=== PATIENT | male | born 1980 | race Caucasian/White ===

== ENCOUNTER 2021-09-26 19:31 | Inpatient (IN) | payer OTHER ==
[2021-09-26] MEDS ORDERED: SODIUM CHLORIDE 1,633 ML IV ONE (20:29)
[2021-09-26] MEDS ORDERED: VANCOMYCIN 1 GM in D5W (PRE-DOCKED) 1,000 MG/250 ML IVPB ONE (20:39)
[2021-09-26] MEDS ORDERED: PIPERACILLIN/TAZOB 4.5 GM 4.5 GM in DEXTROSE 5%-WATER 100 ML IVPB ONE (20:39)
[2021-09-26] MEDS ORDERED: VANCOMYCIN/WATER FOR INJ (PEG) 1,000 MG/200 ML BAG IVPB ONE (21:18)
[2021-09-26 21:47] LABS: VENOUS BASE EXCESS 1.8 mmol/L (-2-2); VENOUS O2 SATURATION 35.5 % (70-80); VENOUS PCO2 61.6 mmHg (38-52); VENOUS PH 7.3 (7.310-7.410)
[2021-09-26 21:58] LABS: BASO % 0.6 % (0-2.0); EOS % 0.8 % (0-4.5); HEMATOCRIT 35.1 % (35.4-49); HEMOGLOBIN 11.8 GM/dL (11.7-16.9); LYMPH % 33.8 % (8-40); MCH 26.3 pg (25.7-33.7); MCHC 33.5 g/dl (32.0-35.9); MEAN CELL VOLUME 78.4 fl (80-96); MEAN PLT VOLUME 8.3 fl (7.5-11.1); MONO % 8.5 % (3.8-10.2); NEUT % 56.3 % (42.8-82.8); PLATELET COUNT 199 10^3/uL (134-434); RBC 4.48 M/mm3 (4.00-5.60); RDW 18.4 % (11.9-15.9); WHITE BLOOD COUNT 5.3 K/mm3 (4.0-10.0)
[2021-09-26] MEDS ORDERED: PIPERACILLIN/TAZOB 4.5 GM 4.5 GM/100 ML BAG IVPB ONE (22:01)
[2021-09-26 22:06] LABS: INR 1.04 (0.83-1.09)
[2021-09-26 22:08] LABS: CHLORIDE 92 mmol/L (98-107); SODIUM 134 mmol/L (136-145)
[2021-09-26 22:09] LABS: ACTIVATED PTT 28.4 SECONDS (25.2-36.5)
[2021-09-26 22:11] LABS: ALBUMIN 3.4 g/dl (3.4-5.0); ANION GAP 12 MMOL/L (8-16); BLOOD UREA NITROGEN 33.2 mg/dL (7-18); CALCIUM 9.1 mg/dL (8.5-10.1); CO2 30 mmol/L (21-32)
[2021-09-26 22:14] LABS: CREATININE 1.9 mg/dL (0.55-1.3); SGOT/AST 36 U/L (15-37); SGPT/ALT 43 U/L (13-61)
[2021-09-26 22:16] LABS: BILIRUBIN,TOTAL 0.6 mg/dL (0.2-1); LACTIC ACID 4.4 mmol/L (0.4-2.0); TOT PROT 8.2 g/dl (6.4-8.2)
[2021-09-26 22:17] LABS: ALK PHOS 154 U/L (45-117); GLUCOSE,RANDOM 497 mg/dL (74-106)
[2021-09-26] MEDS ORDERED: INSULIN REGULAR HUMAN 100 UNITS/ML *VIAL SQ ONE (22:20)
[2021-09-26] MEDS ORDERED: LACTATED RINGERS SOLUTION 1000 ML INFUS.BAG IV ONE (22:26)
[2021-09-26] MEDS ORDERED: INSULIN REGULAR HUMAN 100 UNITS/ML *VIAL ONE (23:14)
[2021-09-26 23:30] LABS: PH,URINE 5.5 (5.0-8.0); URINE APPEARANCE CLEAR; URINE BILIRUBIN NEGATIVE (NEGATIVE); URINE COLOR YELLOW; URINE GLUCOSE (UA) 3+ (NEGATIVE); URINE KETONE 1+ (NEGATIVE); URINE LEUK ESTERASE NEGATIVE (NEGATIVE); URINE NITRITE NEGATIVE (NEGATIVE); URINE PROTEIN NEGATIVE (NEGATIVE); URINE UROBILINOGEN 0.2 mg/dL (0.2-1.0)
[2021-09-27] MEDS ORDERED: chlordiazePOXIDE HCL 25 MG CAPSULE PO PRN (01:11)
[2021-09-27] MEDS ORDERED: chlordiazePOXIDE HCL 25 MG CAPSULE PO ONE (01:11)
[2021-09-27 01:12] LABS: CHLORIDE 98 mmol/L (98-107); SODIUM 135 mmol/L (136-145)
[2021-09-27 01:14] LABS: CALCIUM 8.4 mg/dL (8.5-10.1)
[2021-09-27 01:15] LABS: ANION GAP 7 MMOL/L (8-16); CO2 30 mmol/L (21-32)
[2021-09-27] MEDS ORDERED: THIAMINE HCL 200 MG/2 ML VIAL IVPB ONE (01:15)
[2021-09-27 01:18] LABS: CREATININE 1.7 mg/dL (0.55-1.3)
[2021-09-27 01:27] LABS: GLUCOSE,RANDOM 409 mg/dL (74-106)
[2021-09-27] MEDS ORDERED: chlordiazePOXIDE HCL 25 MG CAPSULE ONE (02:19)
[2021-09-27] MEDS ORDERED: THIAMINE HCL 200 MG/2 ML VIAL ONE (02:19)
[2021-09-27] MEDS ORDERED: diazePAM 5 MG TABLET PO PRN (02:25)
[2021-09-27] MEDS ORDERED: diazePAM 5 MG TABLET PO ONE (02:25)
[2021-09-27] MEDS ORDERED: chlordiazePOXIDE HCL 25 MG CAPSULE PO SCH (05:00)
[2021-09-27] MEDS ORDERED: INSULIN SLIDING SCALE (NOVOLOG) 1 VIAL SQ SCH (07:00)
[2021-09-27 07:24] LABS: HEMATOCRIT 28.3 % (35.4-49); HEMOGLOBIN 9.6 GM/dL (11.7-16.9); MCH 26.3 pg (25.7-33.7); MCHC 33.8 g/dl (32.0-35.9); MEAN CELL VOLUME 77.8 fl (80-96); MEAN PLT VOLUME 8.4 fl (7.5-11.1); PLATELET COUNT 164 10^3/uL (134-434); RBC 3.64 M/mm3 (4.00-5.60); RDW 17.9 % (11.9-15.9); WHITE BLOOD COUNT 5.9 K/mm3 (4.0-10.0)
[2021-09-27] MEDS ORDERED: PIPERACILLIN/TAZOB 3.375 GM 3.375 GM in DEXTROSE 5%-WATER - 50 ML IVPB ONE (07:30)
[2021-09-27] MEDS: LACTATED RINGERS SOLUTION 1,000 ML/1,000 ML INFUS.BAG IV SCH ×2 (07:46→18:34)
[2021-09-27] MEDS ORDERED: methaDONE HCL 10 MG TABLET PO ONE (07:47)
[2021-09-27 07:48] LABS: BLOOD UREA NITROGEN 28.3 mg/dL (7-18); CALCIUM 8.1 mg/dL (8.5-10.1)
[2021-09-27 07:49] LABS: MAGNESIUM 2.1 mg/dL (1.8-2.4)
[2021-09-27 07:51] LABS: CREATININE 1.3 mg/dL (0.55-1.3); PHOSPHOROUS 2.2 mg/dL (2.5-4.9)
[2021-09-27 07:53] LABS: BILIRUBIN,TOTAL 0.6 mg/dL (0.2-1); TOT PROT 6.5 g/dl (6.4-8.2)
[2021-09-27 08:02] LABS: ALBUMIN 2.6 g/dl (3.4-5.0)
[2021-09-27] MEDS: HEPARIN NA (PORCINE) 5,000 UNITS/ML 1ML VIAL SQ SCH ×4 (08:09→22:21)
[2021-09-27] MEDS: diazePAM 5 MG TABLET PO SCH ×4 (08:09→22:10)
[2021-09-27] MEDS ORDERED: DEXTROSE 5%-WATER - 50 ML IVPB ONE ×2 (08:16→16:56)
[2021-09-27] MEDS ORDERED: PIPERACILLIN/TAZOBACTAM 3.375 GM VIAL IVPB ONE ×2 (08:16→16:55)
[2021-09-27] MEDS ORDERED: VANCOMYCIN 1 GM in D5W (PRE-DOCKED) 1,000 MG/250 ML IVPB SCH (10:00)
[2021-09-27] MEDS ORDERED: PIPERACILLIN/TAZOB 3.375 GM 3.375 GM in DEXTROSE 5%-WATER - 50 ML IVPB SCH (10:00)
[2021-09-27] MEDS ORDERED: methaDONE HCL 40 MG DISPERSABLE TABLET ONE (10:00)
[2021-09-27] MEDS ORDERED: methaDONE HCL 10 MG TABLET ONE (10:01)
[2021-09-27] MEDS: FOLIC ACID 1 MG TABLET (FP) PO SCH (10:05)
[2021-09-27] MEDS: THIAMINE HCL 100 MG TABLET (FP) PO SCH (10:05)
[2021-09-27] MEDS: LISINOPRIL 5 MG TABLET PO SCH (10:08)
[2021-09-27] MEDS ORDERED: NAPH,MB-DB/K PH,MBDB POWDER PACKET PO ONE (11:00)
[2021-09-27] MEDS: INSULIN (LEVEMIR) 100 UNITS/ML UNITS SQ SCH ×2 (11:19→22:08)
[2021-09-27] MEDS: INSULIN SLIDING SCALE (NOVOLOG) 1 VIAL SQ SCH ×3 (11:22→22:07)
[2021-09-27] MEDS: NICOTINE 7 MG/24 HOURS TOPICAL PATCH TD SCH (11:52)
[2021-09-27 13:17] VITALS: BMI 18.1
[2021-09-27] MEDS: PREGABALIN 100 MG CAPSULE PO SCH ×2 (13:35→22:10)
[2021-09-27] MEDS: DOXYCYCLINE MONOHYDRATE 25 MG/5 ML SUSPENSION PO SCH (17:36)
[2021-09-27] MEDS: PIPERACILLIN/TAZOB 3.375 GM 3.375 GM in DEXTROSE 5%-WATER - 50 ML IVPB SCH (17:37)
[2021-09-27] MEDS ORDERED: VANCOMYCIN/WATER FOR INJ (PEG) 1,000 MG/200 ML BAG IVPB SCH (20:00)
[2021-09-28] MEDS ORDERED: PIPERACILLIN/TAZOBACTAM 3.375 GM VIAL IVPB ONE ×3 (01:05→17:44)
[2021-09-28] MEDS ORDERED: DEXTROSE 5%-WATER - 50 ML IVPB ONE ×3 (01:05→17:45)
[2021-09-28] MEDS: PIPERACILLIN/TAZOB 3.375 GM 3.375 GM in DEXTROSE 5%-WATER - 50 ML IVPB SCH ×3 (01:16→17:51)
[2021-09-28] MEDS: LACTATED RINGERS SOLUTION 1,000 ML/1,000 ML INFUS.BAG IV SCH ×2 (04:31→12:08)
[2021-09-28] MEDS ORDERED: chlordiazePOXIDE HCL 25 MG CAPSULE PO SCH (05:00)
[2021-09-28] MEDS ORDERED: methaDONE HCL 10 MG TABLET PO SCH (06:00)
[2021-09-28] MEDS: INSULIN SLIDING SCALE (NOVOLOG) 1 VIAL SQ SCH ×4 (06:03→21:32)
[2021-09-28] MEDS: PREGABALIN 100 MG CAPSULE PO SCH ×3 (06:03→21:29)
[2021-09-28] MEDS: diazePAM 5 MG TABLET PO SCH ×3 (06:03→21:30)
[2021-09-28] MEDS: HEPARIN NA (PORCINE) 5,000 UNITS/ML 1ML VIAL SQ SCH ×3 (06:09→21:31)
[2021-09-28 06:22] LABS: URINE APPEARANCE CLEAR; URINE BILIRUBIN NEGATIVE (NEGATIVE); URINE COLOR YELLOW; URINE GLUCOSE (UA) 3+ (NEGATIVE); URINE KETONE NEGATIVE (NEGATIVE); URINE LEUK ESTERASE NEGATIVE (NEGATIVE); URINE NITRITE NEGATIVE (NEGATIVE); URINE PROTEIN NEGATIVE (NEGATIVE)
[2021-09-28] MEDS ORDERED: methaDONE HCL 40 MG DISPERSABLE TABLET ONE (10:16)
[2021-09-28] MEDS ORDERED: methaDONE HCL 10 MG TABLET ONE (10:16)
[2021-09-28] MEDS: DOXYCYCLINE MONOHYDRATE 25 MG/5 ML SUSPENSION PO SCH ×2 (10:19→17:50)
[2021-09-28] MEDS: MULTIVITAMINS (DAILY MVI) TABLET (FP) PO SCH (10:22)
[2021-09-28] MEDS: INSULIN (LEVEMIR) 100 UNITS/ML UNITS SQ SCH ×2 (10:22→21:32)
[2021-09-28] MEDS: FOLIC ACID 1 MG TABLET (FP) PO SCH (10:22)
[2021-09-28] MEDS: AMINO ACIDS/PROTEIN HYDROLYS 30 ML LIQUID.PKT PO SCH (10:22)
[2021-09-28] MEDS: THIAMINE HCL 100 MG TABLET (FP) PO SCH (10:22)
[2021-09-28] MEDS: LISINOPRIL 5 MG TABLET PO SCH (10:22)
[2021-09-28] MEDS: ASCORBIC ACID 250 MG TABLET (FP) PO SCH (10:22)
[2021-09-28] MEDS: NICOTINE 7 MG/24 HOURS TOPICAL PATCH TD SCH (15:25)
[2021-09-28 18:05] LABS: BASO % 0.4 % (0-2.0); EOS % 2.7 % (0-4.5); HEMATOCRIT 30.9 % (35.4-49); HEMOGLOBIN 10.2 GM/dL (11.7-16.9); LYMPH % 37.7 % (8-40); MCH 26.2 pg (25.7-33.7); MCHC 33.1 g/dl (32.0-35.9); MEAN CELL VOLUME 79.2 fl (80-96); MEAN PLT VOLUME 8.4 fl (7.5-11.1); MONO % 6.3 % (3.8-10.2); NEUT % 52.9 % (42.8-82.8); PLATELET COUNT 172 10^3/uL (134-434); RDW 18.5 % (11.9-15.9); WHITE BLOOD COUNT 6.5 K/mm3 (4.0-10.0)
[2021-09-28 18:14] LABS: CALCIUM 8.7 mg/dL (8.5-10.1)
[2021-09-28 18:15] LABS: ALBUMIN 2.5 g/dl (3.4-5.0); BLOOD UREA NITROGEN 21.8 mg/dL (7-18); MAGNESIUM 1.8 mg/dL (1.8-2.4)
[2021-09-28 18:17] LABS: PHOSPHOROUS 2.4 mg/dL (2.5-4.9)
[2021-09-28 18:19] LABS: BILIRUBIN,TOTAL 0.4 mg/dL (0.2-1); TOT PROT 6.6 g/dl (6.4-8.2)
[2021-09-29] MEDS ORDERED: chlordiazePOXIDE HCL 10 MG CAPSULE PO PRN
[2021-09-29] MEDS ORDERED: PIPERACILLIN/TAZOBACTAM 3.375 GM VIAL IVPB ONE ×3 (01:06→18:34)
[2021-09-29] MEDS ORDERED: DEXTROSE 5%-WATER - 50 ML IVPB ONE ×3 (01:06→18:34)
[2021-09-29] MEDS: PIPERACILLIN/TAZOB 3.375 GM 3.375 GM in DEXTROSE 5%-WATER - 50 ML IVPB SCH ×3 (01:19→19:04)
[2021-09-29] MEDS: LACTATED RINGERS SOLUTION 1,000 ML/1,000 ML INFUS.BAG IV SCH ×3 (02:14→13:53)
[2021-09-29] MEDS ORDERED: chlordiazePOXIDE HCL 10 MG CAPSULE PO SCH (05:00)
[2021-09-29] MEDS ORDERED: methaDONE HCL 10 MG TABLET ONE (06:05)
[2021-09-29] MEDS ORDERED: methaDONE HCL 40 MG DISPERSABLE TABLET ONE (06:05)
[2021-09-29] MEDS: PREGABALIN 100 MG CAPSULE PO SCH ×3 (06:07→21:16)
[2021-09-29] MEDS: HEPARIN NA (PORCINE) 5,000 UNITS/ML 1ML VIAL SQ SCH ×4 (06:08→21:11)
[2021-09-29] MEDS: diazePAM 5 MG TABLET PO SCH ×2 (06:08→19:02)
[2021-09-29] MEDS: INSULIN SLIDING SCALE (NOVOLOG) 1 VIAL SQ SCH ×5 (06:14→21:23)
[2021-09-29 10:20] LABS: BASO % 0.5 % (0-2.0); EOS % 1.9 % (0-4.5); HEMATOCRIT 30.2 % (35.4-49); LYMPH % 36.8 % (8-40); MCH 26.5 pg (25.7-33.7); MCHC 33.1 g/dl (32.0-35.9); MEAN CELL VOLUME 80.2 fl (80-96); MEAN PLT VOLUME 8.6 fl (7.5-11.1); MONO % 6.2 % (3.8-10.2); NEUT % 54.6 % (42.8-82.8); PLATELET COUNT 170 10^3/uL (134-434); RBC 3.77 M/mm3 (4.00-5.60); RDW 18.2 % (11.9-15.9); WHITE BLOOD COUNT 7.4 K/mm3 (4.0-10.0)
[2021-09-29] MEDS: MULTIVITAMINS (DAILY MVI) TABLET (FP) PO SCH (10:53)
[2021-09-29] MEDS: LISINOPRIL 5 MG TABLET PO SCH (10:53)
[2021-09-29] MEDS: THIAMINE HCL 100 MG TABLET (FP) PO SCH (10:54)
[2021-09-29] MEDS: NICOTINE 7 MG/24 HOURS TOPICAL PATCH TD SCH (10:54)
[2021-09-29] MEDS: FOLIC ACID 1 MG TABLET (FP) PO SCH (10:54)
[2021-09-29] MEDS: AMINO ACIDS/PROTEIN HYDROLYS 30 ML LIQUID.PKT PO SCH (10:54)
[2021-09-29] MEDS: DOXYCYCLINE MONOHYDRATE 25 MG/5 ML SUSPENSION PO SCH ×2 (10:56→19:09)
[2021-09-29] MEDS: ASCORBIC ACID 250 MG TABLET (FP) PO SCH (10:56)
[2021-09-29 10:58] LABS: BLOOD UREA NITROGEN 24.8 mg/dL (7-18)
[2021-09-29] MEDS: INSULIN (LEVEMIR) 100 UNITS/ML UNITS SQ SCH ×2 (10:59→21:16)
[2021-09-29 11:00] LABS: ALBUMIN 2.5 g/dl (3.4-5.0); CALCIUM 8.8 mg/dL (8.5-10.1)
[2021-09-29 11:01] LABS: MAGNESIUM 1.6 mg/dL (1.8-2.4)
[2021-09-29 11:02] LABS: CREATININE 1.1 mg/dL (0.55-1.3)
[2021-09-29 11:03] LABS: TOT PROT 6.6 g/dl (6.4-8.2)
[2021-09-29 11:04] LABS: BILIRUBIN,TOTAL 0.4 mg/dL (0.2-1)
[2021-09-29 11:05] LABS: PHOSPHOROUS 3.1 mg/dL (2.5-4.9)
[2021-09-29] MEDS ORDERED: ONDANSETRON 4 MG/2 ML VIAL IVPUSH PRN (13:28)
[2021-09-29] MEDS ORDERED: LORazepam 2 MG/ML SDV VIAL IVPUSH PRN (13:42)
[2021-09-29] MEDS: ACETAMINOPHEN 1000 MG/100 ML BAG IVPB PRN (13:54)
[2021-09-29] MEDS: COLLAGENASE CLOSTRIDIUM HIST. 30 GRAMS TUBE TP SCH ×2 (19:03→19:37)
[2021-09-30] MEDS ORDERED: DEXTROSE 5%-WATER - 50 ML IVPB ONE ×3 (01:11→17:37)
[2021-09-30] MEDS ORDERED: PIPERACILLIN/TAZOBACTAM 3.375 GM VIAL IVPB ONE ×3 (01:11→17:37)
[2021-09-30] MEDS: PIPERACILLIN/TAZOB 3.375 GM 3.375 GM in DEXTROSE 5%-WATER - 50 ML IVPB SCH ×3 (01:41→17:44)
[2021-09-30] MEDS ORDERED: chlordiazePOXIDE HCL 10 MG CAPSULE PO SCH (05:00)
[2021-09-30] MEDS: HEPARIN NA (PORCINE) 5,000 UNITS/ML 1ML VIAL SQ SCH ×3 (05:14→21:10)
[2021-09-30] MEDS ORDERED: methaDONE HCL 40 MG DISPERSABLE TABLET ONE (05:35)
[2021-09-30] MEDS ORDERED: methaDONE HCL 10 MG TABLET ONE (05:35)
[2021-09-30] MEDS ORDERED: diazePAM 5 MG TABLET PO ONE (06:00)
[2021-09-30] MEDS: PREGABALIN 100 MG CAPSULE PO SCH ×3 (06:10→21:11)
[2021-09-30] MEDS: LACTATED RINGERS SOLUTION 1,000 ML/1,000 ML INFUS.BAG IV SCH (06:12)
[2021-09-30] MEDS: INSULIN SLIDING SCALE (NOVOLOG) 1 VIAL SQ SCH ×4 (06:22→21:16)
[2021-09-30] MEDS: INSULIN (LEVEMIR) 100 UNITS/ML UNITS SQ SCH ×2 (06:22→21:11)
[2021-09-30] MEDS: AMINO ACIDS/PROTEIN HYDROLYS 30 ML LIQUID.PKT PO SCH (08:16)
[2021-09-30 09:19] LABS: BASO % 0.5 % (0-2.0); HEMATOCRIT 30.7 % (35.4-49); HEMOGLOBIN 10.5 GM/dL (11.7-16.9); LYMPH % 38.5 % (8-40); MCH 26.9 pg (25.7-33.7); MEAN PLT VOLUME 7.9 fl (7.5-11.1); MONO % 5.7 % (3.8-10.2); NEUT % 52.3 % (42.8-82.8); PLATELET COUNT 166 10^3/uL (134-434); RBC 3.89 M/mm3 (4.00-5.60); RDW 18.1 % (11.9-15.9); WHITE BLOOD COUNT 5.3 K/mm3 (4.0-10.0)
[2021-09-30 09:45] LABS: ALBUMIN 2.4 g/dl (3.4-5.0); CALCIUM 8.8 mg/dL (8.5-10.1)
[2021-09-30 09:46] LABS: BLOOD UREA NITROGEN 29.6 mg/dL (7-18)
[2021-09-30 09:48] LABS: CREATININE 1.2 mg/dL (0.55-1.3); PHOSPHOROUS 3.4 mg/dL (2.5-4.9)
[2021-09-30 09:49] LABS: BILIRUBIN,TOTAL 0.4 mg/dL (0.2-1)
[2021-09-30 09:50] LABS: MAGNESIUM 1.8 mg/dL (1.8-2.4); TOT PROT 6.6 g/dl (6.4-8.2)
[2021-09-30] MEDS: THIAMINE HCL 100 MG TABLET (FP) PO SCH (11:00)
[2021-09-30] MEDS: MULTIVITAMINS (DAILY MVI) TABLET (FP) PO SCH (11:00)
[2021-09-30] MEDS: FOLIC ACID 1 MG TABLET (FP) PO SCH (11:00)
[2021-09-30] MEDS: ASCORBIC ACID 250 MG TABLET (FP) PO SCH (11:00)
[2021-09-30] MEDS: NICOTINE 7 MG/24 HOURS TOPICAL PATCH TD SCH (11:01)
[2021-09-30] MEDS: DOXYCYCLINE MONOHYDRATE 25 MG/5 ML SUSPENSION PO SCH ×2 (11:02→17:43)
[2021-09-30] MEDS: ACETAMINOPHEN 1000 MG/100 ML BAG IVPB PRN (13:41)
[2021-09-30] MEDS: COLLAGENASE CLOSTRIDIUM HIST. 30 GRAMS TUBE TP SCH (13:42)
[2021-09-30] MEDS: LISINOPRIL 5 MG TABLET PO SCH (13:49)
[2021-09-30] MEDS ORDERED: HYDROmorphone HCl 2 MG/ML VIAL IVPB ONE (14:00)
[2021-09-30] MEDS: GABAPENTIN 300 MG CAPSULE PO SCH ×2 (14:52→15:07)
[2021-09-30] MEDS: ACETAMINOPHEN 325 MG TABLET (FP) PO SCH ×2 (14:52→21:15)
[2021-09-30] MEDS: LORazepam 1 MG TABLET PO PRN (17:14)
[2021-10-01] MEDS ORDERED: DEXTROSE 5%-WATER - 50 ML IVPB ONE ×3 (01:01→17:37)
[2021-10-01] MEDS ORDERED: PIPERACILLIN/TAZOBACTAM 3.375 GM VIAL IVPB ONE ×3 (01:01→17:37)
[2021-10-01] MEDS: PIPERACILLIN/TAZOB 3.375 GM 3.375 GM in DEXTROSE 5%-WATER - 50 ML IVPB SCH ×3 (01:09→17:45)
[2021-10-01] MEDS: ACETAMINOPHEN 325 MG TABLET (FP) PO SCH ×3 (04:21→15:53)
[2021-10-01] MEDS ORDERED: chlordiazePOXIDE HCL 10 MG CAPSULE PO ONE (05:00)
[2021-10-01] MEDS ORDERED: methaDONE HCL 10 MG TABLET ONE (05:16)
[2021-10-01] MEDS ORDERED: methaDONE HCL 40 MG DISPERSABLE TABLET ONE (05:16)
[2021-10-01] MEDS: PREGABALIN 100 MG CAPSULE PO SCH ×2 (05:24→15:53)
[2021-10-01] MEDS: LORazepam 1 MG TABLET PO PRN ×2 (05:24→17:43)
[2021-10-01] MEDS: HEPARIN NA (PORCINE) 5,000 UNITS/ML 1ML VIAL SQ SCH ×2 (05:27→15:56)
[2021-10-01] MEDS: INSULIN (LEVEMIR) 100 UNITS/ML UNITS SQ SCH (06:35)
[2021-10-01] MEDS: INSULIN SLIDING SCALE (NOVOLOG) 1 VIAL SQ SCH ×3 (06:36→17:47)
[2021-10-01] MEDS: AMINO ACIDS/PROTEIN HYDROLYS 30 ML LIQUID.PKT PO SCH (08:36)
[2021-10-01] MEDS: ASCORBIC ACID 250 MG TABLET (FP) PO SCH (11:24)
[2021-10-01] MEDS: THIAMINE HCL 100 MG TABLET (FP) PO SCH (11:24)
[2021-10-01] MEDS: NICOTINE 7 MG/24 HOURS TOPICAL PATCH TD SCH (11:30)
[2021-10-01] MEDS: LISINOPRIL 5 MG TABLET PO SCH (11:31)
[2021-10-01] MEDS: FOLIC ACID 1 MG TABLET (FP) PO SCH (11:31)
[2021-10-01] MEDS: DOXYCYCLINE MONOHYDRATE 25 MG/5 ML SUSPENSION PO SCH ×2 (11:32→17:44)
[2021-10-01] MEDS: COLLAGENASE CLOSTRIDIUM HIST. 30 GRAMS TUBE TP SCH (11:32)
[2021-10-01] MEDS: MULTIVITAMINS (DAILY MVI) TABLET (FP) PO SCH (11:32)
[2021-10-01 12:28] LABS: BASO % 0.7 % (0-2.0); EOS % 3.1 % (0-4.5); HEMATOCRIT 30.1 % (35.4-49); LYMPH % 44.6 % (8-40); MCH 26.4 pg (25.7-33.7); MCHC 33.2 g/dl (32.0-35.9); MEAN CELL VOLUME 79.5 fl (80-96); MEAN PLT VOLUME 8.4 fl (7.5-11.1); MONO % 7.6 % (3.8-10.2); PLATELET COUNT 203 10^3/uL (134-434); RBC 3.78 M/mm3 (4.00-5.60); RDW 18.7 % (11.9-15.9); WHITE BLOOD COUNT 5.3 K/mm3 (4.0-10.0)
[2021-10-01 13:33] LABS: ALBUMIN 2.5 g/dl (3.4-5.0); BILIRUBIN,TOTAL 0.3 mg/dL (0.2-1); BLOOD UREA NITROGEN 26.3 mg/dL (7-18); CALCIUM 8.9 mg/dL (8.5-10.1); MAGNESIUM 1.8 mg/dL (1.8-2.4); TOT PROT 6.7 g/dl (6.4-8.2)
[2021-10-02] MEDS: INSULIN (LEVEMIR) 100 UNITS/ML UNITS SQ SCH ×3 (00:09→21:45)
[2021-10-02] MEDS: INSULIN SLIDING SCALE (NOVOLOG) 1 VIAL SQ SCH ×5 (00:09→21:48)
[2021-10-02] MEDS: HEPARIN NA (PORCINE) 5,000 UNITS/ML 1ML VIAL SQ SCH ×4 (00:09→21:43)
[2021-10-02] MEDS: ACETAMINOPHEN 325 MG TABLET (FP) PO SCH ×5 (00:10→21:39)
[2021-10-02] MEDS: PREGABALIN 100 MG CAPSULE PO SCH ×4 (00:11→21:48)
[2021-10-02] MEDS ORDERED: PIPERACILLIN/TAZOBACTAM 3.375 GM VIAL IVPB ONE ×3 (01:12→08:53)
[2021-10-02] MEDS ORDERED: DEXTROSE 5%-WATER - 50 ML IVPB ONE ×3 (01:13→08:53)
[2021-10-02] MEDS: PIPERACILLIN/TAZOB 3.375 GM 3.375 GM in DEXTROSE 5%-WATER - 50 ML IVPB SCH ×3 (01:27→17:51)
[2021-10-02] MEDS: LORazepam 1 MG TABLET PO PRN ×3 (02:25→20:05)
[2021-10-02] MEDS ORDERED: methaDONE HCL 40 MG DISPERSABLE TABLET ONE (06:53)
[2021-10-02] MEDS ORDERED: methaDONE HCL 10 MG TABLET ONE (06:53)
[2021-10-02] MEDS: THIAMINE HCL 100 MG TABLET (FP) PO SCH (09:20)
[2021-10-02] MEDS: MULTIVITAMINS (DAILY MVI) TABLET (FP) PO SCH (09:21)
[2021-10-02] MEDS: NICOTINE 7 MG/24 HOURS TOPICAL PATCH TD SCH (09:22)
[2021-10-02] MEDS: FOLIC ACID 1 MG TABLET (FP) PO SCH (09:22)
[2021-10-02] MEDS: AMINO ACIDS/PROTEIN HYDROLYS 30 ML LIQUID.PKT PO SCH (09:23)
[2021-10-02] MEDS: ASCORBIC ACID 250 MG TABLET (FP) PO SCH (09:23)
[2021-10-02 09:24] LABS: BASO % 0.8 % (0-2.0); EOS % 2.9 % (0-4.5); HEMATOCRIT 28.4 % (35.4-49); HEMOGLOBIN 9.5 GM/dL (11.7-16.9); LYMPH % 41.8 % (8-40); MCH 26.4 pg (25.7-33.7); MCHC 33.2 g/dl (32.0-35.9); MEAN CELL VOLUME 79.3 fl (80-96); MEAN PLT VOLUME 8.3 fl (7.5-11.1); MONO % 7.3 % (3.8-10.2); NEUT % 47.2 % (42.8-82.8); PLATELET COUNT 192 10^3/uL (134-434); RBC 3.59 M/mm3 (4.00-5.60); RDW 18.4 % (11.9-15.9)
[2021-10-02] MEDS: LISINOPRIL 5 MG TABLET PO SCH (09:33)
[2021-10-02 09:49] LABS: CREATININE 1.2 mg/dL (0.55-1.3)
[2021-10-02 09:50] LABS: ALBUMIN 2.4 g/dl (3.4-5.0); BILIRUBIN,TOTAL 0.3 mg/dL (0.2-1); BLOOD UREA NITROGEN 30.7 mg/dL (7-18); CALCIUM 8.8 mg/dL (8.5-10.1); MAGNESIUM 1.8 mg/dL (1.8-2.4); TOT PROT 6.3 g/dl (6.4-8.2)
[2021-10-02] MEDS: COLLAGENASE CLOSTRIDIUM HIST. 30 GRAMS TUBE TP SCH (09:54)
[2021-10-02] MEDS: DOXYCYCLINE MONOHYDRATE 25 MG/5 ML SUSPENSION PO SCH ×2 (09:54→20:05)
[2021-10-02] MEDS: cloNIDine HCL 0.1 MG TABLET PO SCH ×2 (15:03→21:40)
[2021-10-03] MEDS: PIPERACILLIN/TAZOB 3.375 GM 3.375 GM in DEXTROSE 5%-WATER - 50 ML IVPB SCH ×2 (02:24→12:14)
[2021-10-03] MEDS: ACETAMINOPHEN 325 MG TABLET (FP) PO SCH ×4 (02:24→21:53)
[2021-10-03] MEDS: cloNIDine HCL 0.1 MG TABLET PO SCH ×3 (06:02→22:05)
[2021-10-03] MEDS: HEPARIN NA (PORCINE) 5,000 UNITS/ML 1ML VIAL SQ SCH ×4 (06:02→21:54)
[2021-10-03] MEDS: PREGABALIN 100 MG CAPSULE PO SCH ×3 (06:02→22:07)
[2021-10-03] MEDS: INSULIN (LEVEMIR) 100 UNITS/ML UNITS SQ SCH ×2 (06:03→22:05)
[2021-10-03] MEDS: INSULIN SLIDING SCALE (NOVOLOG) 1 VIAL SQ SCH ×4 (06:03→22:04)
[2021-10-03] MEDS: LORazepam 1 MG TABLET PO PRN ×2 (06:17→22:11)
[2021-10-03] MEDS: AMINO ACIDS/PROTEIN HYDROLYS 30 ML LIQUID.PKT PO SCH (08:26)
[2021-10-03 09:27] LABS: BASO % 0.9 % (0-2.0); HEMOGLOBIN 9.2 GM/dL (11.7-16.9); MCH 26.2 pg (25.7-33.7); MCHC 32.9 g/dl (32.0-35.9); MEAN CELL VOLUME 79.7 fl (80-96); MEAN PLT VOLUME 8.7 fl (7.5-11.1); MONO % 7.3 % (3.8-10.2); NEUT % 45.8 % (42.8-82.8); PLATELET COUNT 170 10^3/uL (134-434); RBC 3.52 M/mm3 (4.00-5.60); RDW 18.3 % (11.9-15.9); WHITE BLOOD COUNT 4.6 K/mm3 (4.0-10.0)
[2021-10-03 09:55] LABS: BLOOD UREA NITROGEN 28.6 mg/dL (7-18)
[2021-10-03 09:58] LABS: ALBUMIN 2.6 g/dl (3.4-5.0); CALCIUM 9.1 mg/dL (8.5-10.1); MAGNESIUM 2.1 mg/dL (1.8-2.4)
[2021-10-03 09:59] LABS: TOT PROT 6.6 g/dl (6.4-8.2)
[2021-10-03 10:01] LABS: CREATININE 1.2 mg/dL (0.55-1.3)
[2021-10-03 10:02] LABS: BILIRUBIN,TOTAL 0.2 mg/dL (0.2-1)
[2021-10-03] MEDS: LISINOPRIL 5 MG TABLET PO SCH (10:42)
[2021-10-03] MEDS: MULTIVITAMINS (DAILY MVI) TABLET (FP) PO SCH (10:43)
[2021-10-03] MEDS: FOLIC ACID 1 MG TABLET (FP) PO SCH (10:43)
[2021-10-03] MEDS: DOXYCYCLINE MONOHYDRATE 25 MG/5 ML SUSPENSION PO SCH (10:44)
[2021-10-03] MEDS: NICOTINE 7 MG/24 HOURS TOPICAL PATCH TD SCH (10:44)
[2021-10-03] MEDS: THIAMINE HCL 100 MG TABLET (FP) PO SCH (10:44)
[2021-10-03] MEDS: ASCORBIC ACID 250 MG TABLET (FP) PO SCH (10:44)
[2021-10-03] MEDS: COLLAGENASE CLOSTRIDIUM HIST. 30 GRAMS TUBE TP SCH ×2 (10:53→16:19)
[2021-10-03] MEDS: CEFTRIAXONE 2 GM in DEXTROSE 5%-WATER 100 ML IVPB SCH (12:05)
[2021-10-04] MEDS: ACETAMINOPHEN 325 MG TABLET (FP) PO SCH ×4 (01:42→21:02)
[2021-10-04] MEDS: cloNIDine HCL 0.1 MG TABLET PO SCH ×3 (06:10→22:53)
[2021-10-04] MEDS: HEPARIN NA (PORCINE) 5,000 UNITS/ML 1ML VIAL SQ SCH ×3 (06:11→22:14)
[2021-10-04] MEDS: PREGABALIN 100 MG CAPSULE PO SCH ×3 (06:11→22:12)
[2021-10-04] MEDS: LORazepam 1 MG TABLET PO PRN ×3 (06:21→22:13)
[2021-10-04] MEDS: INSULIN (LEVEMIR) 100 UNITS/ML UNITS SQ SCH ×2 (06:58→22:14)
[2021-10-04] MEDS: INSULIN SLIDING SCALE (NOVOLOG) 1 VIAL SQ SCH ×4 (06:58→22:16)
[2021-10-04] MEDS: AMINO ACIDS/PROTEIN HYDROLYS 30 ML LIQUID.PKT PO SCH (07:51)
[2021-10-04] MEDS: NICOTINE 7 MG/24 HOURS TOPICAL PATCH TD SCH (09:45)
[2021-10-04] MEDS: THIAMINE HCL 100 MG TABLET (FP) PO SCH (09:47)
[2021-10-04] MEDS: MULTIVITAMINS (DAILY MVI) TABLET (FP) PO SCH (09:47)
[2021-10-04] MEDS: ASCORBIC ACID 250 MG TABLET (FP) PO SCH (09:48)
[2021-10-04] MEDS: FOLIC ACID 1 MG TABLET (FP) PO SCH (09:48)
[2021-10-04] MEDS: LISINOPRIL 5 MG TABLET PO SCH (09:50)
[2021-10-04 10:18] LABS: BASO % 0.9 % (0-2.0); EOS % 1.3 % (0-4.5); HEMATOCRIT 27.3 % (35.4-49); HEMOGLOBIN 8.9 GM/dL (11.7-16.9); LYMPH % 39.7 % (8-40); MCH 26.2 pg (25.7-33.7); MCHC 32.5 g/dl (32.0-35.9); MEAN CELL VOLUME 80.6 fl (80-96); MEAN PLT VOLUME 9.2 fl (7.5-11.1); NEUT % 48.1 % (42.8-82.8); PLATELET COUNT 161 10^3/uL (134-434); RBC 3.38 M/mm3 (4.00-5.60); RDW 18.7 % (11.9-15.9); WHITE BLOOD COUNT 4.4 K/mm3 (4.0-10.0)
[2021-10-04 10:41] LABS: CALCIUM 8.6 mg/dL (8.5-10.1)
[2021-10-04 10:42] LABS: ALBUMIN 2.6 g/dl (3.4-5.0); BLOOD UREA NITROGEN 27.6 mg/dL (7-18); MAGNESIUM 2.1 mg/dL (1.8-2.4)
[2021-10-04 10:45] LABS: CREATININE 1.1 mg/dL (0.55-1.3)
[2021-10-04 10:47] LABS: BILIRUBIN,TOTAL 0.4 mg/dL (0.2-1); TOT PROT 6.8 g/dl (6.4-8.2)
[2021-10-04] MEDS: COLLAGENASE CLOSTRIDIUM HIST. 30 GRAMS TUBE TP SCH (11:12)
[2021-10-04] MEDS: CEFTRIAXONE 2 GM in DEXTROSE 5%-WATER 100 ML IVPB SCH (11:13)
[2021-10-04] MEDS ORDERED: INSULIN (NOVOLOG) ASPART 100 UNITS/ML 10ML VIAL ONE (23:44)
[2021-10-05] MEDS: ACETAMINOPHEN 325 MG TABLET (FP) PO SCH ×4 (02:13→20:16)
[2021-10-05 04:10] VITALS: RESP 18
[2021-10-05] MEDS: PREGABALIN 100 MG CAPSULE PO SCH ×3 (06:47→21:10)
[2021-10-05] MEDS: cloNIDine HCL 0.1 MG TABLET PO SCH ×3 (06:49→21:09)
[2021-10-05] MEDS: INSULIN (LEVEMIR) 100 UNITS/ML UNITS SQ SCH ×2 (06:49→21:16)
[2021-10-05] MEDS: HEPARIN NA (PORCINE) 5,000 UNITS/ML 1ML VIAL SQ SCH ×3 (06:57→21:10)
[2021-10-05] MEDS: INSULIN SLIDING SCALE (NOVOLOG) 1 VIAL SQ SCH ×4 (06:58→21:12)
[2021-10-05] MEDS: AMINO ACIDS/PROTEIN HYDROLYS 30 ML LIQUID.PKT PO SCH (09:00)
[2021-10-05] MEDS: LORazepam 1 MG TABLET PO PRN ×2 (09:01→16:38)
[2021-10-05] MEDS: MULTIVITAMINS (DAILY MVI) TABLET (FP) PO SCH (09:11)
[2021-10-05] MEDS: NICOTINE 7 MG/24 HOURS TOPICAL PATCH TD SCH (09:19)
[2021-10-05] MEDS: CEFTRIAXONE 2 GM in DEXTROSE 5%-WATER 100 ML IVPB SCH (09:19)
[2021-10-05] MEDS: LISINOPRIL 5 MG TABLET PO SCH (09:20)
[2021-10-05] MEDS: COLLAGENASE CLOSTRIDIUM HIST. 30 GRAMS TUBE TP SCH (09:20)
[2021-10-05] MEDS: FOLIC ACID 1 MG TABLET (FP) PO SCH (09:20)
[2021-10-05] MEDS: THIAMINE HCL 100 MG TABLET (FP) PO SCH (09:20)
[2021-10-05] MEDS: ASCORBIC ACID 250 MG TABLET (FP) PO SCH (09:20)
[2021-10-05] MEDS ORDERED: INSULIN (NOVOLOG) ASPART 100 UNITS/ML 10ML VIAL ONE (20:44)
[2021-10-06] MEDS: ACETAMINOPHEN 325 MG TABLET (FP) PO SCH ×4 (02:30→19:50)
[2021-10-06] MEDS: LORazepam 1 MG TABLET PO PRN ×2 (03:41→11:00)
[2021-10-06] MEDS: cloNIDine HCL 0.1 MG TABLET PO SCH ×3 (06:25→21:23)
[2021-10-06] MEDS: PREGABALIN 100 MG CAPSULE PO SCH ×3 (06:26→21:24)
[2021-10-06] MEDS: HEPARIN NA (PORCINE) 5,000 UNITS/ML 1ML VIAL SQ SCH ×3 (06:26→21:24)
[2021-10-06] MEDS: INSULIN SLIDING SCALE (NOVOLOG) 1 VIAL SQ SCH ×4 (06:36→21:25)
[2021-10-06] MEDS: INSULIN (LEVEMIR) 100 UNITS/ML UNITS SQ SCH ×2 (06:36→21:25)
[2021-10-06] MEDS: LISINOPRIL 5 MG TABLET PO SCH (09:00)
[2021-10-06] MEDS: AMINO ACIDS/PROTEIN HYDROLYS 30 ML LIQUID.PKT PO SCH (09:00)
[2021-10-06] MEDS: ASCORBIC ACID 250 MG TABLET (FP) PO SCH (09:01)
[2021-10-06] MEDS: CEFTRIAXONE 2 GM in DEXTROSE 5%-WATER 100 ML IVPB SCH (09:01)
[2021-10-06] MEDS: FOLIC ACID 1 MG TABLET (FP) PO SCH (09:10)
[2021-10-06] MEDS: COLLAGENASE CLOSTRIDIUM HIST. 30 GRAMS TUBE TP SCH (09:10)
[2021-10-06] MEDS: THIAMINE HCL 100 MG TABLET (FP) PO SCH (09:10)
[2021-10-06] MEDS: MULTIVITAMINS (DAILY MVI) TABLET (FP) PO SCH (09:10)
[2021-10-06] MEDS: NICOTINE 7 MG/24 HOURS TOPICAL PATCH TD SCH (09:11)
[2021-10-06] MEDS ORDERED: INSULIN (NOVOLOG) ASPART 100 UNITS/ML 10ML VIAL ONE (10:57)
[2021-10-06 13:38] LABS: BASO % 0.8 % (0-2.0); EOS % 1.1 % (0-4.5); HEMATOCRIT 27.3 % (35.4-49); HEMOGLOBIN 8.9 GM/dL (11.7-16.9); LYMPH % 39.9 % (8-40); MCH 26.1 pg (25.7-33.7); MCHC 32.7 g/dl (32.0-35.9); MEAN CELL VOLUME 79.8 fl (80-96); MEAN PLT VOLUME 8.8 fl (7.5-11.1); MONO % 10.5 % (3.8-10.2); NEUT % 47.7 % (42.8-82.8); PLATELET COUNT 212 10^3/uL (134-434); RBC 3.43 M/mm3 (4.00-5.60); RDW 19.4 % (11.9-15.9); WHITE BLOOD COUNT 5.4 K/mm3 (4.0-10.0)
[2021-10-06 14:23] LABS: CALCIUM 8.7 mg/dL (8.5-10.1)
[2021-10-06 14:24] LABS: ALBUMIN 2.8 g/dl (3.4-5.0); BLOOD UREA NITROGEN 38.7 mg/dL (7-18); MAGNESIUM 2.3 mg/dL (1.8-2.4)
[2021-10-06 14:25] LABS: CREATININE 1.1 mg/dL (0.55-1.3)
[2021-10-06 14:26] LABS: BILIRUBIN,TOTAL 0.4 mg/dL (0.2-1)
[2021-10-06 14:27] LABS: TOT PROT 7.2 g/dl (6.4-8.2)
[2021-10-06 14:28] LABS: IRON SERUM 48 ug/dL (50-175)
[2021-10-06 14:32] LABS: TOTAL IRON BINDING CAPACITY 331 ug/dL (250-450)
[2021-10-06] MEDS ORDERED: IRON SUCROSE INJECTION 100 MG in SODIUM CHLORIDE 95 ML IVPB ONE (16:15)
[2021-10-07] MEDS: ACETAMINOPHEN 325 MG TABLET (FP) PO SCH ×4 (01:20→20:57)
[2021-10-07] MEDS: PREGABALIN 100 MG CAPSULE PO SCH ×3 (06:21→21:41)
[2021-10-07] MEDS: HEPARIN NA (PORCINE) 5,000 UNITS/ML 1ML VIAL SQ SCH ×3 (06:21→21:41)
[2021-10-07] MEDS: cloNIDine HCL 0.1 MG TABLET PO SCH ×3 (06:22→21:41)
[2021-10-07] MEDS: INSULIN (LEVEMIR) 100 UNITS/ML UNITS SQ SCH ×2 (06:26→21:46)
[2021-10-07] MEDS: INSULIN SLIDING SCALE (NOVOLOG) 1 VIAL SQ SCH ×4 (06:27→21:45)
[2021-10-07] MEDS: LORazepam 1 MG TABLET PO PRN ×2 (07:28→15:26)
[2021-10-07] MEDS: AMINO ACIDS/PROTEIN HYDROLYS 30 ML LIQUID.PKT PO SCH (08:24)
[2021-10-07] MEDS: COLLAGENASE CLOSTRIDIUM HIST. 30 GRAMS TUBE TP SCH (09:21)
[2021-10-07] MEDS: LISINOPRIL 5 MG TABLET PO SCH (09:24)
[2021-10-07] MEDS: CEFTRIAXONE 2 GM in DEXTROSE 5%-WATER 100 ML IVPB SCH (09:25)
[2021-10-07] MEDS: THIAMINE HCL 100 MG TABLET (FP) PO SCH (09:25)
[2021-10-07] MEDS: MULTIVITAMINS (DAILY MVI) TABLET (FP) PO SCH (09:25)
[2021-10-07] MEDS: ASCORBIC ACID 250 MG TABLET (FP) PO SCH (09:25)
[2021-10-07] MEDS: NICOTINE 7 MG/24 HOURS TOPICAL PATCH TD SCH (09:25)
[2021-10-07] MEDS: FOLIC ACID 1 MG TABLET (FP) PO SCH (09:25)
[2021-10-07] MEDS ORDERED: IRON SUCROSE INJECTION 200 MG in SODIUM CHLORIDE 90 ML IVPB ONE (12:21)
[2021-10-07 16:15] LABS: BASO % 0.8 % (0-2.0); EOS % 1.1 % (0-4.5); HEMATOCRIT 28.1 % (35.4-49); HEMOGLOBIN 9.1 GM/dL (11.7-16.9); LYMPH % 32.1 % (8-40); MCH 26.4 pg (25.7-33.7); MCHC 32.5 g/dl (32.0-35.9); MEAN CELL VOLUME 81.2 fl (80-96); MEAN PLT VOLUME 8.9 fl (7.5-11.1); MONO % 11.8 % (3.8-10.2); NEUT % 54.2 % (42.8-82.8); PLATELET COUNT 205 10^3/uL (134-434); RBC 3.46 M/mm3 (4.00-5.60); WHITE BLOOD COUNT 4.4 K/mm3 (4.0-10.0)
[2021-10-07 16:20] LABS: CALCIUM 8.5 mg/dL (8.5-10.1)
[2021-10-07 16:21] LABS: ALBUMIN 2.6 g/dl (3.4-5.0); BLOOD UREA NITROGEN 36.4 mg/dL (7-18); MAGNESIUM 2.2 mg/dL (1.8-2.4)
[2021-10-07 16:24] LABS: CREATININE 1.2 mg/dL (0.55-1.3)
[2021-10-07 16:25] LABS: BILIRUBIN,TOTAL 0.4 mg/dL (0.2-1); TOT PROT 6.9 g/dl (6.4-8.2)
[2021-10-07] MEDS ORDERED: SODIUM ZIRCONIUM CYCLOSILICATE (LOKELMA) 5 GM PACKET PO SCH (16:45)
[2021-10-07] MEDS: FERROUS SO4 325 MG TABLET (FP) PO SCH (17:22)
[2021-10-08] MEDS: LORazepam 1 MG TABLET PO PRN ×3 (00:19→21:31)
[2021-10-08] MEDS: ACETAMINOPHEN 325 MG TABLET (FP) PO SCH ×4 (01:45→21:14)
[2021-10-08] MEDS: cloNIDine HCL 0.1 MG TABLET PO SCH ×3 (06:32→21:14)
[2021-10-08] MEDS: HEPARIN NA (PORCINE) 5,000 UNITS/ML 1ML VIAL SQ SCH ×4 (06:33→21:15)
[2021-10-08] MEDS: INSULIN SLIDING SCALE (NOVOLOG) 1 VIAL SQ SCH ×4 (06:41→21:16)
[2021-10-08] MEDS: INSULIN (LEVEMIR) 100 UNITS/ML UNITS SQ SCH ×2 (06:42→21:16)
[2021-10-08] MEDS: PREGABALIN 100 MG CAPSULE PO SCH ×3 (06:50→21:14)
[2021-10-08] MEDS: CEFTRIAXONE 2 GM in DEXTROSE 5%-WATER 100 ML IVPB SCH (09:20)
[2021-10-08] MEDS: MULTIVITAMINS (DAILY MVI) TABLET (FP) PO SCH (09:21)
[2021-10-08] MEDS: AMINO ACIDS/PROTEIN HYDROLYS 30 ML LIQUID.PKT PO SCH (09:21)
[2021-10-08] MEDS: THIAMINE HCL 100 MG TABLET (FP) PO SCH (09:21)
[2021-10-08] MEDS: LISINOPRIL 5 MG TABLET PO SCH (09:22)
[2021-10-08] MEDS: FERROUS SO4 325 MG TABLET (FP) PO SCH ×2 (09:22→17:23)
[2021-10-08] MEDS: ASCORBIC ACID 250 MG TABLET (FP) PO SCH (09:22)
[2021-10-08] MEDS: NICOTINE 7 MG/24 HOURS TOPICAL PATCH TD SCH (09:22)
[2021-10-08] MEDS: FOLIC ACID 1 MG TABLET (FP) PO SCH (09:23)
[2021-10-08] MEDS: SODIUM ZIRCONIUM CYCLOSILICATE (LOKELMA) 10 GM PACKET PO SCH (09:23)
[2021-10-08] MEDS: COLLAGENASE CLOSTRIDIUM HIST. 30 GRAMS TUBE TP SCH (09:23)
[2021-10-08] MEDS ORDERED: INSULIN (NOVOLOG) ASPART 100 UNITS/ML 10ML VIAL ONE ×2 (10:56→21:06)
[2021-10-08 13:24] LABS: BASO % 0.8 % (0-2.0); EOS % 1.4 % (0-4.5); HEMATOCRIT 27.1 % (35.4-49); HEMOGLOBIN 8.7 GM/dL (11.7-16.9); LYMPH % 28.7 % (8-40); MCH 26.4 pg (25.7-33.7); MCHC 32.1 g/dl (32.0-35.9); MEAN CELL VOLUME 82.3 fl (80-96); MEAN PLT VOLUME 9.1 fl (7.5-11.1); MONO % 9.4 % (3.8-10.2); NEUT % 59.7 % (42.8-82.8); PLATELET COUNT 213 10^3/uL (134-434); RBC 3.29 M/mm3 (4.00-5.60); RDW 19.5 % (11.9-15.9); WHITE BLOOD COUNT 4.8 K/mm3 (4.0-10.0)
[2021-10-08 13:47] LABS: ALBUMIN 2.7 g/dl (3.4-5.0); BLOOD UREA NITROGEN 27.4 mg/dL (7-18); CALCIUM 8.7 mg/dL (8.5-10.1)
[2021-10-08 13:48] LABS: MAGNESIUM 2.1 mg/dL (1.8-2.4)
[2021-10-08 13:50] LABS: CREATININE 1.1 mg/dL (0.55-1.3)
[2021-10-08 13:52] LABS: BILIRUBIN,TOTAL 0.4 mg/dL (0.2-1)
[2021-10-08] MEDS ORDERED: IRON SUCROSE INJECTION 200 MG in SODIUM CHLORIDE 90 ML IVPB ONE (15:00)
[2021-10-09] MEDS: ACETAMINOPHEN 325 MG TABLET (FP) PO SCH ×4 (03:18→21:26)
[2021-10-09] MEDS: PREGABALIN 100 MG CAPSULE PO SCH ×3 (06:45→21:26)
[2021-10-09] MEDS: cloNIDine HCL 0.1 MG TABLET PO SCH ×3 (06:45→21:31)
[2021-10-09] MEDS: HEPARIN NA (PORCINE) 5,000 UNITS/ML 1ML VIAL SQ SCH ×3 (06:45→21:28)
[2021-10-09] MEDS: INSULIN SLIDING SCALE (NOVOLOG) 1 VIAL SQ SCH ×5 (06:54→22:24)
[2021-10-09] MEDS: LORazepam 1 MG TABLET PO PRN ×3 (07:00→21:26)
[2021-10-09] MEDS: INSULIN (LEVEMIR) 100 UNITS/ML UNITS SQ SCH ×2 (07:00→21:38)
[2021-10-09] MEDS: NICOTINE 7 MG/24 HOURS TOPICAL PATCH TD SCH (10:58)
[2021-10-09] MEDS: SODIUM ZIRCONIUM CYCLOSILICATE (LOKELMA) 10 GM PACKET PO SCH (10:58)
[2021-10-09] MEDS: FERROUS SO4 325 MG TABLET (FP) PO SCH ×2 (10:59→17:02)
[2021-10-09] MEDS: LISINOPRIL 5 MG TABLET PO SCH ×2 (10:59→11:14)
[2021-10-09] MEDS: FOLIC ACID 1 MG TABLET (FP) PO SCH (10:59)
[2021-10-09] MEDS: ASCORBIC ACID 250 MG TABLET (FP) PO SCH (10:59)
[2021-10-09] MEDS: THIAMINE HCL 100 MG TABLET (FP) PO SCH (10:59)
[2021-10-09] MEDS: MULTIVITAMINS (DAILY MVI) TABLET (FP) PO SCH (10:59)
[2021-10-09] MEDS: CEFTRIAXONE 2 GM in DEXTROSE 5%-WATER 100 ML IVPB SCH (11:00)
[2021-10-09] MEDS: COLLAGENASE CLOSTRIDIUM HIST. 30 GRAMS TUBE TP SCH (11:01)
[2021-10-09] MEDS: AMINO ACIDS/PROTEIN HYDROLYS 30 ML LIQUID.PKT PO SCH (11:06)
[2021-10-09 11:23] LABS: BASO % 0.9 % (0-2.0); EOS % 1.9 % (0-4.5); HEMATOCRIT 28.7 % (35.4-49); HEMOGLOBIN 9.1 GM/dL (11.7-16.9); LYMPH % 30.6 % (8-40); MCH 26.7 pg (25.7-33.7); MCHC 31.9 g/dl (32.0-35.9); MEAN CELL VOLUME 83.9 fl (80-96); MEAN PLT VOLUME 9.3 fl (7.5-11.1); MONO % 9.7 % (3.8-10.2); NEUT % 56.9 % (42.8-82.8); PLATELET COUNT 232 10^3/uL (134-434); RBC 3.42 M/mm3 (4.00-5.60); RDW 19.9 % (11.9-15.9); WHITE BLOOD COUNT 6.3 K/mm3 (4.0-10.0)
[2021-10-09 11:30] LABS: CALCIUM 8.4 mg/dL (8.5-10.1)
[2021-10-09 11:32] LABS: ALBUMIN 2.7 g/dl (3.4-5.0); BLOOD UREA NITROGEN 28.9 mg/dL (7-18); MAGNESIUM 2.1 mg/dL (1.8-2.4)
[2021-10-09 11:37] LABS: BILIRUBIN,TOTAL 0.5 mg/dL (0.2-1); TOT PROT 7.2 g/dl (6.4-8.2)
[2021-10-09] MEDS ORDERED: INSULIN (NOVOLOG) ASPART 100 UNITS/ML 10ML VIAL ONE (21:19)
[2021-10-10] MEDS: ACETAMINOPHEN 325 MG TABLET (FP) PO SCH ×3 (02:01→13:46)
[2021-10-10] MEDS: HEPARIN NA (PORCINE) 5,000 UNITS/ML 1ML VIAL SQ SCH ×2 (06:54→13:48)
[2021-10-10] MEDS: cloNIDine HCL 0.1 MG TABLET PO SCH ×2 (07:00→13:47)
[2021-10-10] MEDS: PREGABALIN 100 MG CAPSULE PO SCH ×2 (07:00→13:48)
[2021-10-10] MEDS: LORazepam 1 MG TABLET PO PRN (07:00)
[2021-10-10] MEDS: INSULIN (LEVEMIR) 100 UNITS/ML UNITS SQ SCH (07:06)
[2021-10-10] MEDS: INSULIN SLIDING SCALE (NOVOLOG) 1 VIAL SQ SCH ×2 (07:08→11:08)
[2021-10-10 07:17] VITALS: PULSE 68
[2021-10-10] MEDS: AMINO ACIDS/PROTEIN HYDROLYS 30 ML LIQUID.PKT PO SCH (08:07)
[2021-10-10] MEDS: FERROUS SO4 325 MG TABLET (FP) PO SCH (08:07)
[2021-10-10] MEDS: SODIUM ZIRCONIUM CYCLOSILICATE (LOKELMA) 10 GM PACKET PO SCH (09:13)
[2021-10-10] MEDS: NICOTINE 7 MG/24 HOURS TOPICAL PATCH TD SCH (09:14)
[2021-10-10] MEDS: LISINOPRIL 5 MG TABLET PO SCH (09:15)
[2021-10-10] MEDS: ASCORBIC ACID 250 MG TABLET (FP) PO SCH (09:16)
[2021-10-10] MEDS: MULTIVITAMINS (DAILY MVI) TABLET (FP) PO SCH (09:16)
[2021-10-10] MEDS: FOLIC ACID 1 MG TABLET (FP) PO SCH (09:16)
[2021-10-10] MEDS: THIAMINE HCL 100 MG TABLET (FP) PO SCH (09:16)
[2021-10-10] MEDS: CEFTRIAXONE 2 GM in DEXTROSE 5%-WATER 100 ML IVPB SCH (09:26)
[2021-10-10] MEDS ORDERED: AMOX TR/POT CLAV 875MG/125MG TABLETS (FP) PO SCH (12:15)
[2021-10-10] MEDS ORDERED: DOXYCYCLINE HYCLATE 100 MG CAPSULE PO SCH (12:30)
[2021-10-10 12:59] VITALS: BP 107/63; TEMP 98.3
[2021-10-10] MEDS: COLLAGENASE CLOSTRIDIUM HIST. 30 GRAMS TUBE TP SCH (13:12)
== END 2021-10-10 14:28 | disposition home or self-care (01) | DRG 344 ==
LOC: JER 19:31 → JERBED 20:32 → J5S 09-27 06:02 → J6S 10-01 16:59
PROVIDERS: ADMIT Internal Medicine; ATTEND Nurse Practitioner Acute Care
DX: E11.69 Type 2 diabetes mellitus with other specified complication (principal); E11.621 Type 2 diabetes mellitus with foot ulcer; L97.418 Non-pressure chronic ulcer of right heel and midfoot with other specified severity; E11.65 Type 2 diabetes mellitus with hyperglycemia; E11.40 Type 2 diabetes mellitus with diabetic neuropathy, unspecified; N17.9 Acute kidney failure, unspecified; M86.8X7 Other osteomyelitis, ankle and foot; E86.0 Dehydration; F11.20 Opioid dependence, uncomplicated; L03.115 Cellulitis of right lower limb; F10.239 Alcohol dependence with withdrawal, unspecified; D50.9 Iron deficiency anemia, unspecified; E11.41 Type 2 diabetes mellitus with diabetic mononeuropathy; Z59.01 Sheltered homelessness; Z89.9 Acquired absence of limb, unspecified
CPT/HCPCS: 36415; 71045-TC-FY; 71250-TC; 73562-TC-RT-FY; 73590-TC-RT-FY; 73630-TC-RT-FY; 73718-TC-RT; 76775-TC; 80048; 80053; 80307; 81003; 82010; 82550; 82553; 82607; 82746; 82803; 82962; 83036; 83540; 83550; 83605; 83735; 84100; 84132; 84484; 85025; 85027; 85610; 85730; 86140; 86850; 86900; 86901; 87040; 87086; 93005; 93010; 93926-TC; 93971-TC; 99291; 99292; C9803-CS; J0735; J1644; J1756; U0003; U0005